=== PATIENT | female | born 1960 | race Caucasian/White ===

== ENCOUNTER 2017-06-13 08:58 | Outpatient (CLI) | payer BC ==
[2017-06-13 10:23] LABS: #Eosinphils 0.1 thou/uL (0.0-0.7); #Lymphocytes 1.8 thou/uL (1.20-3.40); #Monocytes 0.4 thou/uL (0.11-0.59); #Neutrophils 2.4 thou/uL (1.40-6.50); %Basophils 0.9 % (0.0-1.0); %Eosinophils 2.6 % (0.0-10.0); %Monocytes 7.5 % (0.0-10.0); %Neutrophils 51.1 % (42.0-75.0); Hemoglobin 13.1 g/dL (12.0-16.0); Mean Corpuscular HGB CONC 32.6 g/dL (32.0-36.0); Mean Corpuscular Hemoglobin 30.4 pg (27.0-31.0); Mean Corpuscular Volume 93.2 fl (81.0-99.0); Mean Platelet Volume 7.4 fL (7.4-10.4); Platelet Count 239 thou/uL (130-400); RBC Distribution Width 12.5 % (11.5-14.5); White Blood Cell (WBC) Count 4.8 thou/uL (4.8-10.8)
[2017-06-13 10:38] LABS: Anion Gap 12 mmol/L (10-20); BUN (Urea Nitrogen) 12 mg/dL (9.8-20.1); Calc. Creatinine Clearance 0 mL/min (70-130); Calcium 9.4 mg/dL (7.8-10.44); Carbon Dioxide 23 mmol/L (22-29); Chloride 108 mmol/L (98-107); Estimated GFR-MDRD 74; Glucose 118 mg/dL (70-105); Potassium 4.3 mmol/L (3.5-5.1); Sodium 139 mmol/L (136-145)
--- NOTE | 2017-06-13 11:51 | RAD ---
PA AND LATERAL CHEST: History: Pre-operative evaluation. FINDINGS: The heart size is normal. The lungs are expanded without focal areas of consolidation, pneumothorax, or pleural effusions. IMPRESSION: No radiographic evidence of acute cardiopulmonary process. POS: [facility]
--- NOTE | 2017-06-13 19:04 | EKG ---
Test Reason : Blood Pressure : / mmHG Vent. Rate : 074 BPM Atrial Rate : 074 BPM P-R Int : 118 ms QRS Dur : 078 ms QT Int : 378 ms P-R-T Axes : 060 026 -08 degrees QTc Int : 419 ms Normal sinus rhythm Borderline short WA interval No previous ECGs available Confirmed by DR. Nicole ZHU ([id number]) on 06/13/2017 7:04:27 PM Referred By: FABIANA Confirmed By:DR. Nicole ZHU
== END 2017-06-13 08:59 | disposition home or self-care (01) ==
LOC: LABBT 08:58
PROVIDERS: ATTEND Specialist
DX: Z01.818 Encounter for other preprocedural examination (principal); K44.9 Diaphragmatic hernia without obstruction or gangrene
CPT/HCPCS: 71046; 80048; 85025; 93005; 93010

== ENCOUNTER 2017-06-20 06:06 | Day surgery (SDC) | payer BC ==
--- NOTE | 2017-06-12 15:00 | HP ---
HISTORY OF PRESENT ILLNESS: Jerri Walton is a 56-year-old female who I have seen previously regar ding a very large hiatal hernia. She has been referred Dr. Andres Clarke. The patient is without ref lux symptoms. The patient underwent a hematuria workup, CT scan stone protocol revealing a large fix ed diaphragmatic hernia with most of the stomach above the diaphragm. There is a 1.2 cm calculus, le ft renal, pelvis, and mild left UPJ obstruction. The patient does not have any dysphagia symptoms or reflux, but does have some discomfort in her left abdomen, thought probably attributable to her left urinary stones and/or hiatal hernia. Patient has been referred to Dr. Hugo Collado and EGD and colono scopy performed revealing diverticulosis, internal hernia, and two small benign polyps in the rectum. An upper endoscopy noting a very large hiatal hernia with normal esophagus, stomach, otherwise, she had some mild erosions in the gastric antrum; duodenum was normal. MEDICATIONS: Aspirin 81 mg a day, levothyroxine 100 mcg a day, vitamin D3 b.i.d., vitamin B12 b.i.d. , atorvastatin 40 mg a day, metformin 500 mg once a day, sertraline 25 mg a day. PAST MEDICAL HISTORY: Ray's thyroiditis, hypothyroidism, depression, and hyperlipidemia. PAST SURGICAL HISTORY: Hysterectomy with ovaries intact. Dr. Antony in 1993, partial thyroidectomy, and ureteroscopy. FAMILY HISTORY: Noncontributory. TOBACCO: None. ALCOHOL: None. ALLERGIES: AUGMENTIN, pruritus. REVIEW OF SYSTEMS: 10-point review of systems; unremarkable. PHYSICAL EXAMINATION: VITAL SIGNS: 205 pounds, 69 inches, BMI 30;153/68, 109, 98.6 degrees. LUNGS: Clear to auscultation. CARDIAC: Regular rate and rhythm without murmur or gallop. ABDOMEN: Soft, nontender, no masses. EXTREMITIES: Unremarkable. ASSESSMENT AND PLAN: A very large hiatal hernia with diaphragmatic defect and normal upper endoscopy except for antral erosions. Although, the patient does not have any reflux, she does have symptoms from this in her young age of 56. I have recommended and she agrees to plan for laparoscopic hiatal hernia, repair with Brandon fundoplication. She understands the risks of infection, bleeding, reopera tion, recurrence to the hiatal hernia, possible use of mesh, although unlikely we will try to avoid t hat and will plan this for spring break at an approximate time.
[2017-06-13 09:18] VITALS: BMI 29.2
[2017-06-20] MEDS ORDERED: Ketorolac Tromethamine 30 MG/ML VIAL ONE (06:40)
[2017-06-20] MEDS ORDERED: CEFAZOLIN/Water 2 GM/20 ML SYRINGE ONE (06:40)
[2017-06-20] MEDS ORDERED: Bupivacaine/Epinephrine 0.25% 30 ML VIAL ONE (06:42)
[2017-06-20] MEDS ORDERED: Levofloxacin 500 mg/D5W 100 ml Premix Bag ONE (06:55)
[2017-06-20] MEDS ORDERED: HYDROmorphone 0.5 MG/0.5 ML SYRINGE ONE (07:06)
[2017-06-20] MEDS ORDERED: Fentanyl 250 MCG/5 ML VIAL ONE (07:06)
[2017-06-20] MEDS ORDERED: Promethazine HCl 25 MG/ML VIAL ONE (07:07)
[2017-06-20] MEDS ORDERED: Heparin 10,000 UNITS/1 ML VIAL ONE (08:15)
[2017-06-20] MEDS ORDERED: Heparin 5,000 UNITS/ML VIAL ONE (08:17)
[2017-06-20] MEDS ORDERED: SUGAMMADEX SODIUM 200 MG/2 ML VIAL ONE (09:42)
[2017-06-20] MEDS ORDERED: Morphine Sulfate 2 MG/ML SYRINGE SLOW IVP PRN (09:55)
[2017-06-20] MEDS ORDERED: Ondansetron HCl/PF 4 MG/2 ML Vial IVP PRN (09:55)
[2017-06-20] MEDS ORDERED: Promethazine HCl 25 MG/ML VIAL SLOW IVP PRN (09:55)
[2017-06-20] MEDS ORDERED: Morphine 2 MG/ML SYRINGE SLOW IVP PRN (10:00)
[2017-06-20] MEDS ORDERED: Acetaminophen 325 MG TAB PO PRN (10:00)
[2017-06-20] MEDS ORDERED: Dextrose 5% in Water 1,000 ML IV PRN (10:00)
[2017-06-20] MEDS ORDERED: Dextrose 50% Abboject 50 ML SYRINGE SLOW IVP PRN (10:00)
[2017-06-20] MEDS ORDERED: diphenhydrAMINE 50 MG/ML VIAL IVP PRN (10:00)
[2017-06-20] MEDS ORDERED: hydrALAZINE 20 MG/ML VIAL SLOW IVP PRN (10:00)
[2017-06-20] MEDS ORDERED: traMADol HCl 50 MG TAB PO PRN (10:04)
[2017-06-20] MEDS ORDERED: Acetaminophen 500 MG TAB PO PRN (10:04)
--- NOTE | 2017-06-20 11:05 | OP ---
DATE OF OPERATION: 06/20/2017 PREOPERATIVE DIAGNOSIS: Large hiatal hernia. POSTOPERATIVE DIAGNOSIS: Large hiatal hernia. PROCEDURES: Laparoscopic hiatal hernia repair with Brandon fundoplication over a 52-[place]er bougie, ga stropexy 2-0 Ethibond. SURGEON: Dr. Joel Snow. ANESTHESIA: General. Local 0.25% Marcaine with epinephrine, 60 mL. PROCEDURE: Patient taken to the operating room where under general anesthesia in supine position, ab alfonso was prepared with ChloraPrep, draped in routine fashion. Local anesthetic infiltrated into ski n and subcutaneous tissue about each port site. Supraumbilical midline incision made and pneumoperit oneum to 15 mmHg obtained with the Veress needle, replacing it with a 5 port. Video laparoscope inse rted. Right subcostal incision made and a 5 port placed and liver retractor inserted and placed belo w the left lobe of the liver reflected anteriorly. This identified a large hiatal hernia. Right and left subxiphoid incisions made and a 5 and 11 mm port placed respectfully. Left mid lateral abdomin al incision made and a 5 port placed. There was a large amount of stomach up into the chest through a large hiatal hernia. Hiatal hernia contents dissected free carefully beginning at the gastrospleni c ligament taken down with the LigaSure up towards the angle of His and identifying the left crura an d taken down hiatal hernia sac attachments from the crura. This was then carried out circumferential ly anteriorly and then to the patient's right taking down the hepatogastric ligament, cephalad openin g the posterior window identified and the posterior left and right crura were visualized from the rig ht side. The posterior window identified. A [place] drain quarter inch placed and held in place wit h a laparoscopic grasper through the lower left incision. At this point, further dissection of the m ediastinum and carried out facilitate by placement of a 52-[place]er bougie, and initially placing a 40 [place]er then serially placing bougie up to a 52-[place]er. Once this was in place, this enabled safe dis section of the paraesophageal tissues from the mediastinum, freeing the esophagus and the stomach fro m all of its attachments. Careful dissection carried out at this point, posterior hiatus was then cl osed with interrupted sutures of 0 Ethibond with tie knots. Once this was completed, the fundus post eriorly left was identified for the wrap and placed through the posterior window and grasped from the right side of the esophagus held in place and the initial sutures for the wrap placed with 0 Bralon with tie knots used. Initially, the fundus to the left and right esophagus was secured to the apex o f the esophagus just below the hiatus with 0 Bralon tie knot sutures. About 2 cm caudal to this anot her suture was placed holding the stomach together. A 2 cm inferior to this another Bralon suture wa s placed incorporating approximation of the fundus on the left right side of the esophagus to the low er esophagus just above the GE junction. The knots were all tied and placed. Interrupted Bralon sut ures in place to the left of the fundus anteriorly to the anterior crew and to the right. There was adequate space after the bougie was removed appreciate inadequate space between the fundus and the es ophagus. A gastropexy suture of 2-0 Bralon was placed securing the greater curvature of the stomach near the gastrosplenic ligament to the anterior abdominal wall in the proper position for gastropexy fixation. Tie knot was used to secure the suture. Liver retractor was removed. Good hemostasis not ed. Pneumoperitoneum evacuated. All this instruments removed and all skin incisions approximated wi th subdermal 4-0 Monocryl and DermaGlue applied. The patient tolerated the procedure well.
[2017-06-20] MEDS: Ketorolac Tromethamine 30 MG/ML VIAL IVP SCH ×2 (11:20→17:42)
[2017-06-20] MEDS: D5 1/2 NS w/20 mEq KCL 1,000 ML IV SCH ×2 (11:23→17:49)
[2017-06-20] MEDS ORDERED: PROPOFOL 200 MG/20 ML VIAL ONE (14:54)
[2017-06-20] MEDS ORDERED: Lidocaine 1% PF 5 ML VIAL ONE (14:54)
[2017-06-20] MEDS ORDERED: Glycopyrrolate 0.2 MG/ML 5 ML SYRINGE ONE (14:54)
[2017-06-20] MEDS ORDERED: Heparin 10,000 UNITS/ 10 ML VIAL ONE (14:54)
[2017-06-20] MEDS ORDERED: Ondansetron HCl/PF 4 MG/2 ML Vial ONE (14:54)
[2017-06-20] MEDS ORDERED: Dexamethasone 20 MG/5 ML VIAL ONE (14:54)
[2017-06-20] MEDS ORDERED: PHENYLEPHRINE-NS 100 MCG/ML 10 ML SYRINGE ONE (14:54)
[2017-06-20] MEDS: Cyanocobalamin (Vitamin B-12) 1,000 MCG TAB PO SCH (21:27)
[2017-06-20] MEDS: Enoxaparin Sodium 40 MG/0.4 ML SYRINGE SC SCH (21:27)
[2017-06-20] MEDS: Atorvastatin Calcium 40 MG TAB PO SCH (21:28)
[2017-06-20] MEDS: traMADol HCl 50 MG TAB PO PRN (21:30)
[2017-06-21] MEDS: Ketorolac Tromethamine 30 MG/ML VIAL IVP SCH ×5 (00:24→23:00)
[2017-06-21] MEDS: D5 1/2 NS w/20 mEq KCL 1,000 ML IV SCH (02:43)
[2017-06-21 04:52] LABS: #Lymphocytes 1.5 thou/uL (1.20-3.40); #Monocytes 0.9 thou/uL (0.11-0.59); #Neutrophils 10.5 thou/uL (1.40-6.50); %Basophils 0.1 % (0.0-1.0); %Eosinophils 0.2 % (0.0-10.0); %Monocytes 6.7 % (0.0-10.0); %Neutrophils 81.1 % (42.0-75.0); Hemoglobin 12.4 g/dL (12.0-16.0); Mean Corpuscular HGB CONC 33.6 g/dL (32.0-36.0); Mean Corpuscular Hemoglobin 31.4 pg (27.0-31.0); Mean Corpuscular Volume 93.4 fl (81.0-99.0); Mean Platelet Volume 7.2 fL (7.4-10.4); Platelet Count 272 thou/uL (130-400); RBC Distribution Width 12.7 % (11.5-14.5); Red Blood Cell (RBC) Count 3.96 mill/uL (4.20-5.40); White Blood Cell (WBC) Count 12.9 thou/uL (4.8-10.8)
[2017-06-21 05:07] LABS: Anion Gap 13 mmol/L (10-20); BUN (Urea Nitrogen) 13 mg/dL (9.8-20.1); Calc. Creatinine Clearance 98 mL/min (70-130); Carbon Dioxide 24 mmol/L (22-29); Chloride 106 mmol/L (98-107); Estimated GFR-MDRD 64; Glucose 131 mg/dL (70-105); Potassium 4.7 mmol/L (3.5-5.1); Sodium 138 mmol/L (136-145)
[2017-06-21] MEDS: Levothyroxine Sodium 100 MCG TAB PO SCH (05:48)
[2017-06-21] MEDS: Aspirin 81 mg Enteric Coated Tablet PO SCH (08:41)
[2017-06-21] MEDS: Pantoprazole 40 MG VIAL IVP SCH (08:41)
[2017-06-21] MEDS: metFORMIN 500 MG TAB PO SCH (08:41)
[2017-06-21] MEDS: Cyanocobalamin (Vitamin B-12) 1,000 MCG TAB PO SCH ×2 (08:42→21:02)
[2017-06-21] MEDS: Ondansetron HCl/PF 4 MG/2 ML Vial IVP PRN ×3 (08:59→22:52)
[2017-06-21] MEDS: traMADol HCl 50 MG TAB PO PRN (16:51)
[2017-06-21] MEDS: Atorvastatin Calcium 40 MG TAB PO SCH (21:03)
[2017-06-21] MEDS: Enoxaparin Sodium 40 MG/0.4 ML SYRINGE SC SCH (21:03)
--- NOTE | 2017-06-21 21:20 | PRG ---
DATE OF SERVICE: 06/21/2017 SUBJECTIVE: Ms. Jerri Walton has postop laparoscopic Brandon fundoplication and hiatal hernia repa ir. She has tried clear liquids, but is not tolerating them well. We did advance her to full liquid s last night, but I had changed that to clear liquids. At this point, she is having minimal pain. OBJECTIVE: LUNGS: Clear to auscultation. CARDIAC: Regular rate and rhythm without murmur or gallop. ABDOMEN: Soft. VITAL SIGNS: 97.6 degrees, 78, 152/90. LABORATORY DATA: Laboratories this morning, reveal white count of 12, hemoglobin 12.4. Basic metabo lic profile is normal. ASSESSMENT AND PLAN: Continue IV fluids, clear liquids only with minimal fluids until her regurgitat ion resolves. Expect discharge home in 24-48 hours. Hopefully, we will not have to obtain a contras t swallow.
[2017-06-22] MEDS: Dextrose 5 %-0.45 % NaCl 1,000 ML IV SCH ×3 (01:37→20:41)
[2017-06-22] MEDS: Ketorolac Tromethamine 30 MG/ML VIAL IVP SCH ×3 (05:27→21:00)
[2017-06-22] MEDS: Levothyroxine Sodium 112 MCG TAB PO SCH (05:27)
[2017-06-22] MEDS: Aspirin 81 mg Enteric Coated Tablet PO SCH (08:09)
[2017-06-22] MEDS: Cyanocobalamin (Vitamin B-12) 1,000 MCG TAB PO SCH ×2 (08:09→21:01)
[2017-06-22] MEDS: metFORMIN 500 MG TAB PO SCH (08:12)
[2017-06-22] MEDS: Pantoprazole 40 MG VIAL IVP SCH (08:13)
[2017-06-22] MEDS: Ondansetron HCl/PF 4 MG/2 ML Vial IVP PRN (08:15)
[2017-06-22] MEDS ORDERED: Ketorolac Tromethamine 30 MG/ML VIAL ONE ×2 (14:05→14:56)
[2017-06-22] MEDS ORDERED: Fentanyl 250 MCG/5 ML VIAL ONE ×3 (14:34→17:54)
[2017-06-22] MEDS ORDERED: Bupivacaine/Epinephrine 0.25% 30 ML VIAL ONE (14:37)
[2017-06-22] MEDS ORDERED: Succinylcholine Chloride 20 MG/ML 10 ml SYRINGE FS ONE (14:56)
[2017-06-22] MEDS ORDERED: PHENYLEPHRINE-NS 100 MCG/ML 10 ML SYRINGE ONE (14:56)
[2017-06-22] MEDS ORDERED: PROPOFOL 200 MG/20 ML VIAL ONE (14:56)
[2017-06-22] MEDS ORDERED: Lidocaine 1% PF 5 ML VIAL ONE (14:56)
[2017-06-22] MEDS ORDERED: Ondansetron HCl/PF 4 MG/2 ML Vial ONE (14:56)
[2017-06-22] MEDS ORDERED: Dexamethasone 20 MG/5 ML VIAL ONE (14:56)
[2017-06-22] MEDS ORDERED: Glycopyrrolate 0.2 MG/ML 5 ML SYRINGE ONE (14:56)
[2017-06-22] MEDS ORDERED: Levofloxacin 500 mg/D5W 100 ml Premix Bag ONE (15:21)
[2017-06-22] MEDS ORDERED: HYDROmorphone 0.5 MG/0.5 ML SYRINGE ONE (17:01)
[2017-06-22] MEDS ORDERED: Promethazine HCl 25 MG/ML VIAL IM PRN (17:34)
[2017-06-22] MEDS ORDERED: Promethazine HCl 25 MG/ML VIAL SLOW IVP PRN (17:34)
[2017-06-22] MEDS ORDERED: Ondansetron HCl/PF 4 MG/2 ML Vial IVP PRN (17:34)
[2017-06-22] MEDS ORDERED: HYDROmorphone 2 MG/ML VIAL SLOW IVP PRN (17:34)
[2017-06-22] MEDS: Atorvastatin Calcium 40 MG TAB PO SCH (21:00)
[2017-06-22] MEDS: Enoxaparin Sodium 40 MG/0.4 ML SYRINGE SC SCH (21:01)
--- NOTE | 2017-06-22 22:52 | PRG ---
DATE OF SERVICE: 06/22/2017 SUBJECTIVE: Patient postoperatively has not been able to swallow. She is frothing, cannot even hand le her own saliva or swallow pills. OBJECTIVE: ABDOMEN: Soft and nontender. LUNGS: Clear to auscultation. VITAL SIGNS: Stable. PLAN: I have recommended to Ms. Walton that we return to the operating room, we repeat a laparoscop y and upper endoscopy to address this problem. She understands the risk and benefits and consents. We will proceed today.
--- NOTE | 2017-06-22 23:07 | OP ---
DATE OF PROCEDURE: 06/22/2017 PREOPERATIVE DIAGNOSIS: Inability to swallow 2 days status post laparoscopic Brandon fundoplication, hiatal hernia repair, and gastropexy. POSTOPERATIVE DIAGNOSIS: Recurrent hiatal hernia with esophageal obstruction. PROCEDURES: Diagnostic laparoscopy, takedown of Brandon fundoplication, upper endoscopy, redo Brandon fundoplication and crural closure over a 52-Bulgarian bougie, and completion EGD with PEG tube. SURGEON: Joel Snow MD ANESTHESIA: General. DESCRIPTION OF PROCEDURE: The patient was taken to the operating room where under general anesthesia in the dorsal lithotomy position, abdomen was prepared with ChloraPrep and draped in routine fashion . Local anesthetic was infiltrated into the skin and subcutaneous tissue about the old trocar sites. Incision was made through the same old scars from two days previously. Pneumoperitoneum was incise d with Veress needle and this was replaced with a 5 port. Remainder of the ports were placed. Left subxiphoid 11 port was placed. Right subxiphoid 5 port placed. Right subcostal lateral [address] and a Fish retractor was used to retract the left lobe of the liver. Left lateral subcostal 5 port placed. At this point, the Brandon fundoplication was intact, but as we looked at the crura the redu ndant stomach had herniated up into the mediastinum. The anterior crural fixation sutures for the fu ndus were taken down. The Brandon fundoplication wrap sutures were taken down and the wrap decompress ed, so we could evaluate the esophagus. The hiatal hernia repair was intact, but careful efforts to place the bougie tube met resistance, thus the posterior hiatal sutures were taken down except for th e most posterior one, and this enabled the bougie to be advanced into the stomach safely under laparo scopic visualization. For some reason, the angulation of the esophagus from the posterior hiatal her juvenal repair seems to have caused some degree of obstruction of the lower esophagus. For this reason, a single suture was placed posteriorly once the bougie was down, 0 Bralon tie knot. The remainder of the hiatal closure was closed in right anterior lateral and left anterior lateral. At this point, 0 Bralon tie knots were used to close the hiatus, left anterior lateral and right anterior lateral. T he hiatus was adequately closed and it was loose enough to allow passage of the grasping instruments. At this point, the fundus just beyond the angle of His posteriorly was brought around to the java web developer ior window. A Bourbon drain had been placed and held in place with a grasper. The appropriate offse t fundus was then used to create a 360-degree floppy Brandon fundoplication wrap. suture of 0 B ralon using a tie knot was placed to anchor the apical fundus to the esophagus and the fundus was the n approximated approximately 1.5 to 2 cm caudal to this with an 0 Bralon, and then about 2 cm caudal to this, another 0 Bralon was used to approximate the fundus incorporating the lower esophagus by it. At this point, the left and right crura anteriorly were approximated to the adjacent fundus with 0 Bralon suture and tie knots used. At this point, bougie was removed and endoscope placed and it pass ed easily into the stomach without resistance. Of note, is that prior to taking down the Brandon, I i nitially performed upper endoscopy. Once all laparoscopy visualization was obtained and prior to michael ing down the Brandon and the scope did not pass beyond the lower esophagus. As noted above, after the Brandon was taken down, the scope easily passed, and then the bougie was placed and I reviewed the Ni ssen. It was felt that the patient would benefit from a PEG tube for gastropexy. Thus, endoscope on ce passed into the stomach, inflated the stomach, and the trocar catheter introduced in left subcosta l into the appropriate portion of the stomach at the junction of the fundus and mid stomach, where it would be pexed and held in place appropriately to prevent cephalad migration. Once the trocar was i ntroduced percutaneously into the stomach, a wire was introduced. It was grasped with a snare and th e endoscope and snare brought out through the mouth, and gastrostomy tube lubricated and pulled back down and brought out to the skin and fixated to the skin with fixation device and the feeding device. The patient tolerated the procedure well without complications. Fish retractor was removed. Pneum operitoneum was reduced. Good hemostasis was noted. All instruments were removed. All skin incisio ns were approximated with interrupted subdermal 4-0 Monocryl and DermaGlue applied.
[2017-06-23] MEDS: Ketorolac Tromethamine 30 MG/ML VIAL IVP SCH ×3 (00:17→11:25)
[2017-06-23] MEDS: Ondansetron HCl/PF 4 MG/2 ML Vial IVP PRN ×3 (00:26→18:16)
[2017-06-23] MEDS: Dextrose 5 %-0.45 % NaCl 1,000 ML IV SCH ×3 (01:31→16:55)
[2017-06-23 05:12] LABS: #Monocytes 0.6 thou/uL (0.11-0.59); #Neutrophils 8.3 thou/uL (1.40-6.50); %Basophils 0.1 % (0.0-1.0); %Eosinophils 0.2 % (0.0-10.0); %Lymphocytes 9.8 % (21.0-51.0); %Monocytes 6.1 % (0.0-10.0); %Neutrophils 83.9 % (42.0-75.0); Hemoglobin 12.8 g/dL (12.0-16.0); Mean Corpuscular Hemoglobin 30.9 pg (27.0-31.0); Mean Corpuscular Volume 93.6 fl (81.0-99.0); Mean Platelet Volume 7.1 fL (7.4-10.4); Platelet Count 255 thou/uL (130-400); RBC Distribution Width 12.3 % (11.5-14.5); Red Blood Cell (RBC) Count 4.15 mill/uL (4.20-5.40); White Blood Cell (WBC) Count 9.9 thou/uL (4.8-10.8)
[2017-06-23 05:22] LABS: Anion Gap 14 mmol/L (10-20); BUN (Urea Nitrogen) 12 mg/dL (9.8-20.1); Calc. Creatinine Clearance 88 mL/min (70-130); Calcium 9.7 mg/dL (7.8-10.44); Carbon Dioxide 26 mmol/L (22-29); Chloride 102 mmol/L (98-107); Estimated GFR-MDRD 57; Glucose 147 mg/dL (70-105); Potassium 4.2 mmol/L (3.5-5.1); Sodium 138 mmol/L (136-145)
[2017-06-23] MEDS: Levothyroxine Sodium 100 MCG TAB PO SCH (06:27)
[2017-06-23] MEDS: Pantoprazole 40 MG VIAL IVP SCH (11:20)
[2017-06-23] MEDS: Cyanocobalamin (Vitamin B-12) 1,000 MCG TAB PO SCH ×2 (11:21→20:27)
[2017-06-23] MEDS: Aspirin 81 mg Enteric Coated Tablet PO SCH (11:21)
[2017-06-23] MEDS ORDERED: Ondansetron ODT 8 MG TAB PO PRN (14:14)
[2017-06-23] MEDS ORDERED: Ondansetron ODT 8 MG TAB SL PRN (14:14)
[2017-06-23] MEDS ORDERED: Ondansetron ORAL SOLN. 4 MG/5 ML UDCUP PO PRN ×2 (14:14)
[2017-06-23] MEDS ORDERED: Ondansetron ODT 4 MG TAB PO PRN (14:14)
[2017-06-23] MEDS ORDERED: Acetaminophen 500 MG TAB PO PRN (14:16)
--- NOTE | 2017-06-23 15:08 | PRG ---
DATE OF SERVICE: 06/23/2017 SUBJECTIVE: Ms. Walton is doing well today. She is tolerating her liquids. She is still spitting up some saliva, but overall she is doing much better. She is not having nausea, retching. PHYSICAL EXAMINATION: VITAL SIGNS: Temperature 98.3 degrees, 92, 167/97. LUNGS: Clear to auscultation. CARDIAC: Regular rate and rhythm without murmur or gallop. ABDOMEN: Soft, nontender. Surgical wound was good. Gastrostomy tube site looks good. LABORATORY: White count 9.9, hemoglobin 12. Basic metabolic profile normal. ASSESSMENT AND PLAN: Doing well after laparoscopic revision and takedown and repeat Brandon fundoplic ation with percutaneous endoscopic gastrostomy tube placement for gastropexy. She is tolerating her liquids now. She is discharged home with Lortab Elixir and cumn-xgu-jiayarl Tylenol as needed. She will resume her necessary home medications, mainly her Zoloft and Synthroid. She can give her medica tions through her PEG tube and nursing will educate her on how to do this and send her home with cath eter tip syringe to accomplish this should she needed to. She will follow up in my office in 2-3 [facility]. She will be ambulatory and active.
--- NOTE | 2017-06-23 19:25 | ADD-PRG ---
ADDENDUM: 06/23/2017 Ms. Walton was seen earlier. I was led to believe she was taking more liquids than she really was. She is still spitting up some saliva and although she is not having any nausea and does not having t he pain she had before with her esophageal obstruction, she is tolerating some liquids, although not enough for discharge. Plan is continue IV fluids, monitor today and hopefully be able to discharge h er home tomorrow. She is agreeable with this plan.
[2017-06-23] MEDS: Atorvastatin Calcium 40 MG TAB PO SCH (21:00)
[2017-06-23] MEDS: Enoxaparin Sodium 40 MG/0.4 ML SYRINGE SC SCH (21:00)
--- NOTE | 2017-06-23 21:38 | DIS ---
DATE OF ADMISSION: 06/20/2017 DATE OF DISCHARGE: 06/23/2017 DISCHARGE DIAGNOSES: 1. A very large hiatal hernia without reflux. 2. Post-Brandon fundoplication hiatal hernia repair, distal esophageal obstruction with reherniation postoperative requiring repeat laparoscopic and endoscopic evaluation with takedown and revision and reformation of her Brandon fundoplication over a 36-Bahraini bougie, and PEG tube for gastropexy. HISTORY: A 56-year-old female, presenting with a large hiatal hernia, symptomatic, but without signi ficant reflux with preoperative medications of cholecalciferol, vitamin B12, aspirin, metformin, sert raline, atorvastatin, and levothyroxine medications orally. The patient was admitted the day of surg markus after undergoing laparoscopic Brandon fundoplication over the 36-[place] bougie with repair of her large hiatal hernia and gastropexy. Postoperatively, the patient seemed to do initially well, but th en could not tolerate liquids. In fact, could not tolerate her own saliva. It was thought that this would resolve as edema improved, but it did not, and on 06/22/2017, she was returned to the [facility] room for endoscopic and laparoscopic evaluation. Endoscopic evaluation revealed the endoscope woul d not pass beyond the distal esophagus and there were pain pills in the distal esophagus. Laparoscop ic evaluation initially took down the fundus approximation to the left and right anterior crura and t hen we appreciated that part of the fundus had re-herniated paraesophageally. This was reduced. As we progressed, it was realized that there was still obstruction and the Brandon fundoplication was michael en down. The hiatal hernia posteriorly would not allow the bougie to be passed into the stomach, eliza s two of the posterior sutures removed and finally the third suture removed and this left a single po sterior suture. The bougie then would pass into the stomach visualized laparoscopically and Brandon f undoplication was reperformed with a 360 degree loose wrap. This was performed over a 36-Bah[place]i boug ie. The anterior hiatus was approximated right anterolateral and left anterolateral to prevent the a ngulation of the esophagus that was witnessed with posterior repair. The patient had [address] posteriorly. Once this was completed and the revision of the wrap completed, a PEG tube was formed for better gastropexy. Postoperatively, the patient tolerated liquids. She is sent home on Lortab elixir 200 mL to use as necessary. She was sent home with a catheter tip syringe to use her gastrost kash tube if necessary. She was tolerating liquids by the time of discharge. She will follow up in m y office in 2 weeks. Plan is to remove the PEG tube in about 3 weeks. She will gradually progress h er diet from liquids to full liquids and soft foods over the next few weeks.
[2017-06-24] MEDS: Acetaminophen 650 MG/20.3 ML UDCUP PO PRN ×2 (00:54→11:44)
[2017-06-24 04:33] VITALS: BP 120/79; TEMP 98.5
[2017-06-24] MEDS: Levothyroxine Sodium 112 MCG TAB PO SCH (06:53)
[2017-06-24] MEDS: Pantoprazole 40 MG VIAL IVP SCH ×2 (09:04→09:11)
[2017-06-24] MEDS: Aspirin 81 mg Enteric Coated Tablet PO SCH (09:05)
[2017-06-24] MEDS: Cyanocobalamin (Vitamin B-12) 1,000 MCG TAB PO SCH (09:10)
--- NOTE | 2017-06-24 11:54 | PRG ---
DATE OF SERVICE: 06/24/2017 SUBJECTIVE: Ms. Walton is doing well today. She is tolerating liquids. She is not spitting up. S he is ready for discharge home. Exam is unremarkable. Vital signs are normal. Follow up in my offi ce per appointment in 2-3 weeks. Slowly advance diet, avoiding breads, salads and meats, taking most ly liquids, advancing to soft food slowly as tolerated.
--- NOTE | 2017-06-24 17:05 | ADD-DIS ---
ADDENDUM Ms. Walton was held overnight because she was not taking adequate liquids. She, however, yesterday and this morning tolerated liquids well without any spitting up. She will be discharged home as outlined previously. She will use her G-tube for meds if necessary, but otherwis e she can swallow and eat, advance her diet slowly per bariatric diet protocol advancement. Avoid br ead salads and meats for 4-6 weeks.
== END 2017-06-24 12:27 | disposition home or self-care (01) ==
LOC: SDC 06:06 → EDSTATUS 09:00 → SURG A 10:23 → SDC 06-24 12:27
PROVIDERS: ATTEND Specialist
PROC: 0DV44ZZ Restriction of Esophagogastric Junction, Percutaneous Endoscopic Approach (ICD-10-PCS; principal; 2017-06-20)
PROC: 0BQT4ZZ Repair Diaphragm, Percutaneous Endoscopic Approach (ICD-10-PCS; principal; 2017-06-20)
DX: Z79.82 Long term (current) use of aspirin; E78.5 Hyperlipidemia, unspecified; K44.9 Diaphragmatic hernia without obstruction or gangrene; Z88.1 Allergy status to other antibiotic agents; Z90.710 Acquired absence of both cervix and uterus; Z79.899 Other long term (current) drug therapy; E06.3 Autoimmune thyroiditis; F32.9 Major depressive disorder, single episode, unspecified; Z98.890 Other specified postprocedural states; Z88.8 Allergy status to other drugs, medicaments and biological substances; Z79.84 Long term (current) use of oral hypoglycemic drugs; E89.0 Postprocedural hypothyroidism
CPT/HCPCS: 36415; 36416; 80048; 85025; C9113; J0131; J1100; J1170; J1644; J1650; J1885; J1956; J2001; J2270; J2405; J2550; J2704; J3010

== ENCOUNTER 2018-01-18 15:59 | Outpatient (CLI) | payer BC | END 2018-01-18 16:00 | disposition home or self-care (01) | LOC: BICMAMMO 15:59 | PROVIDERS: ATTEND Family Medicine | DX: Z12.31 Encounter for screening mammogram for malignant neoplasm of breast (principal) | CPT/HCPCS: 77063; 77067 ==

== ENCOUNTER 2019-09-12 10:53 | Outpatient (CLI) | payer BC ==
--- NOTE | 2019-09-12 11:37 | MMO ---
Bilateral MAMMO Bilat Screen [facility]. CLINICAL HISTORY: Patient is 58 years old and is seen for screening. The patient has no family history of breast cancer. The patient has no personal history of cancer. VIEWS: The views performed were: bilateral craniocaudal with tomosynthesis and bilateral mediolateral oblique with tomosynthesis. FILMS COMPARED: The present examination has been compared to prior imaging studies performed at [facility] on 02/26/2014, 03/18/2015, 03/23/2016 and 01/18/2018. This study has been interpreted with the assistance of computer-aided detection. MAMMOGRAM FINDINGS: The breasts are extremely dense, which may lower the sensitivity of mammography. There are stable benign appearing calcifications seen in both breasts. There are no suspicious masses, suspicious calcifications, or new areas of architectural distortion. IMPRESSION: THERE IS NO MAMMOGRAPHIC EVIDENCE OF MALIGNANCY. A ROUTINE FOLLOW-UP MAMMOGRAM IN 1 YEAR IS RECOMMENDED. THE RESULTS OF THIS EXAM WERE SENT TO THE PATIENT. ACR BI-RADS Category 2 - Benign finding MAMMOGRAPHY NOTE: 1. A negative mammogram report should not delay a biopsy if a dominant of clinically suspicious mass is present. 2. Approximately 10% to 15% of breast cancers are not detected by mammography. 3. Adenosis and dense breasts may obscure an underlying neoplasm. Reported by: MARISABEL GALEAS MD Electonically Signed: [id number]
== END 2019-09-12 10:54 | disposition home or self-care (01) ==
LOC: BICMAMMO 10:53
PROVIDERS: ATTEND Family Medicine
DX: Z12.31 Encounter for screening mammogram for malignant neoplasm of breast (principal)
CPT/HCPCS: 77063; 77067

== ENCOUNTER 2020-09-16 15:28 | Outpatient (CLI) | payer BC | END 2020-09-16 15:29 | disposition home or self-care (01) | LOC: BICMAMMO 15:28 | PROVIDERS: ATTEND Family Medicine | DX: Z12.31 Encounter for screening mammogram for malignant neoplasm of breast (principal) | CPT/HCPCS: 77063; 77067 ==

== ENCOUNTER 2021-10-25 08:16 | Outpatient (CLI) | payer BC | END 2021-10-25 08:17 | disposition home or self-care (01) | LOC: BICMAMMO 08:16 | PROVIDERS: ATTEND Family Medicine | DX: Z12.31 Encounter for screening mammogram for malignant neoplasm of breast (principal) | CPT/HCPCS: 77063; 77067 ==